=== PATIENT | female | born 1960 | race Caucasian/White ===

== ENCOUNTER → 2017-05-11 | Outpatient (CLI) | payer OTHER | LOC: CIMAGING 15:02 | PROVIDERS: ATTEND Internal Medicine | DX: Z12.31 Encounter for screening mammogram for malignant neoplasm of breast (principal); Z80.3 Family history of malignant neoplasm of breast | CPT/HCPCS: G0202 ==

== ENCOUNTER 2018-04-21 18:40 | Emergency (ER) | payer OTHER ==
[2018-04-21] MEDS ORDERED: PROPARACAINE 0.5% 15 ML OPHT DROP ONE (18:58)
--- NOTE | 2018-04-21 18:58 | EDPHY ---
H & P Stated Complaint: stinging pain/blurry vision and now pupil dilation l eye since 4pm Time Seen by Provider: 04/21/18 18:56 HPI/ROS: CHIEF COMPLAINT: Left eye stinging, dilated pupil, cloudy vision HISTORY OF PRESENT ILLNESS: The patient is a 57 y/o female with a history of a partial retinal tear (unsure which eye) complaining of left eye stinging and sensation of eye fullness onset this afternoon around 16:30. She had just returned from the grocery store and went into the bathroom when she noticed her left eye started stinging. She may have possibly touched her eye prior to symptom onset. She tried applying an eye drop "from [place]," but this seemed to aggravate the stinging. She then tried a Visine drop and then an allergy eyedrop with worsening stinging sensation and she noticed her left pupil was more dilated than the right. At this point she also had associated cloudiness in her vision and decided to come to the ED. She occasionally uses reading glasses, but no contacts or prescription glasses. She notes she was in [place] last week and had a chiropractic adjustment while there that seemed to aggravate her neck pain. Upon returning to [place] yesterday she saw a local chiropractor who worked on her neck and she currently has right- sided neck pain extending into her right upper arm. No left-sided neck pain. She took a muscle relaxant for this last night, but not today. She denies headache, weakness, paresthesias. REVIEW OF SYSTEMS: A ten point review of systems was performed and is negative with the exception of the items mentioned in the HPI. Past medical history: Partial retina tear Past surgical history: Noncontributory Family history: Noncontributory Social history: Son at bedside. Recently returned from [place]. General Appearance: Alert. Vital signs reviewed. Eyes: Visual Acuity: noted from Nurse's notes. L 20/50, R 20/25, both 20/20 Pupils: round and reactive to light, left pupil 3mm larger than right, no Yemi Nestor pupil, EOMI Lids: no edema or swelling Skin: no proptosis, no periorbital erythema or swelling, no vesicles Conjunctivae: not injected, no discharge Cornea: Fluorescein exam not performed. Anterior chamber: normal, no hyphema or hypopyon Tonometer: Left eye - 11mmHg ENT, Mouth: Mucous membranes are moist. Neck: Supple. No carotid bruit. Respiratory: No distress Skin: Warm and dry, no rashes on exposed skin, normal color. Extremities: Atraumatic. Neurological: Alert and oriented. Cranial nerves III function is normal. Moving all four extremities easily and equally. Facial sensation intact to light touch. Tongue midline. Psychiatric: Normal affect. - Personal History Current Tetanus/Diphtheria Vaccine: Yes - Medical/Surgical History Hx Asthma: No Hx Chronic Respiratory Disease: No Hx Diabetes: No Hx Cardiac Disease: No Hx Renal Disease: No Hx Cirrhosis: No Hx Alcoholism: No Hx HIV/AIDS: No Hx Splenectomy or Spleen Trauma: No Other PMH: laser eye surg/retina prob unsure which eye - Social History Smoking Status: Never smoked Constitutional: Initial Vital Signs Temperature (C) 36.3 C 04/21/18 18:49 Heart Rate 61 04/21/18 18:49 Respiratory Rate 16 04/21/18 18:49 Blood Pressure 127/76 H 04/21/18 18:49 O2 Sat (%) 97 04/21/18 18:49 O2 Delivery Mode Room Air Allergies/Adverse Reactions: No Known Allergies Allergy (Unverified 04/21/18 18:49) Home Medications: Medication Instructions Recorded [place] Muscle Relaxer 04/21/18 Medical Decision Making ED Course/Re-evaluation: This is a 57 y/o female with a history of a partial retinal tear (unknown which eye) who presents with left eye stinging sensation, pupil dilation, and cloudy vision onset this afternoon after possibly touching her eye and then applying 3 different types of eye drops. Symptoms occurred in the setting of recent chiropractic adjustments on her neck with ongoing right-sided neck pain. On exam , her left pupil is 3mm larger than her right, but normally reactive. No visible trauma. Slit lamp exam is normal as is pressure on tonometer. Suspect the series of drops she used likely caused the anisocoria, doubt glaucoma with normal pressure on tonometer. Will consider head/neck CTs to rule out vertebral dissection from chiropractic manipulations, though patient is reluctant to pursue imaging and I think this is a less likely cause for her symptoms. She has no left-sided neck pain. Neurologic exam is normal aside from the anisocoria. Ophthalmology paged. Consulted with Dr. Antoine, ophthalmology. He reports Visine contains Tetrahydrozoline, which can cause pupil dilation. He recommends outpatient follow up with his office tomorrow if needed. Discussed this recommendation with the patient. She is eager to go home and plans to follow up with Dr. Antoine tomorrow. She does not wish to pursue any imaging tonight. Strict return precautions discussed. She is comfortable with this plan. Differential Diagnosis: I considered a differential diagnosis that includes but is not limited to chemical anisacoria, Adie's tonic pupil, retinal or vitreous detachment, direct trauma to the eye, glaucoma, and vascular dissection/stroke. Departure - Departure Disposition: Home, Routine, Self-Care Clinical Impression: Anisocoria, chemical dilation Condition: Good Instructions: Eye Lubricant (Into the eye), Eye Pain (ED) Additional Instructions: 1. Use artificial tears only. 2. Follow up with Dr. Antoine, zookeeper, tomorrow for reevaluation. I recommend calling first thing in the morning to schedule this. 3. Return to the ED for severe pain, headache, weakness or numbness on one side of your body, vision changes, or other worsening of condition. Referrals: Jael Sharma MD [Primary Care Provider] - As per Instructions Adama Antoine MD [Medical Doctor] - As per Instructions Report Scribed for: Cande Vivas Report Scribed by: Nuvia Thornton Date of Report: 04/21/18 Time of Report: 19:11 Physician Review and Approval Statement: 04/23/18 19:16 Portions of this note were transcribed by the medical claims representative. I, Dr. Cande Vivas, personally performed the history, physical exam, and medical decision- making; and confirmed the accuracy of the information in the transcribed note.
[2018-04-21 21:01] VITALS: BP 139/65
== END 2018-04-21 20:59 | disposition home or self-care (01) ==
DX: H57.02 Anisocoria (principal); Z77.098 Contact with and (suspected) exposure to other hazardous, chiefly nonmedicinal, chemicals

== ENCOUNTER → 2019-02-06 | Outpatient (CLI) | payer OTHER | LOC: CIMAGING 13:02 | PROVIDERS: ATTEND Internal Medicine | DX: Z12.31 Encounter for screening mammogram for malignant neoplasm of breast (principal); Z80.3 Family history of malignant neoplasm of breast ==